=== PATIENT | female | born 1960 | race Caucasian/White ===

== ENCOUNTER → 2017-04-16 | Outpatient (CLI) | payer OTHER | LOC: FIMAGING 15:56 | PROVIDERS: ATTEND Family Medicine | DX: Z12.31 Encounter for screening mammogram for malignant neoplasm of breast (principal) | CPT/HCPCS: G0202 ==

== ENCOUNTER → 2018-04-30 | Outpatient (CLI) | payer OTHER | LOC: FIMAGING 15:58 | PROVIDERS: ATTEND Family Medicine | DX: Z12.31 Encounter for screening mammogram for malignant neoplasm of breast (principal) ==

== ENCOUNTER 2018-07-10 16:29 | Observation (INO) | payer OTHER ==
--- NOTE | 2018-07-10 16:46 | EDPHY ---
H & P Stated Complaint: L jaw pain Time Seen by Provider: 07/10/18 16:46 HPI/ROS: HPI CHIEF COMPLAINT: Left-sided jaw discomfort, flushed, palpitation HISTORY OF PRESENT ILLNESS: 58-year-old female, presents emergency room left jaw discomfort 3 episodes today. States her left jaw felt very tight, the last episode happened while she was driving home from work, she got flushed, felt her heart palpitating and had left jaw discomfort. Describes a tightness sensation. No real chest pain. No shortness of breath. But she has never had this before. No pleuritic pain. Past Medical History: Hypertension Past Surgical History: No surgical history Social History: Denies drugs alcohol tobacco. Family History: Significant for coronary artery disease, CVA in her father ROS REVIEW OF SYSTEMS: 10 Systems were reviewed and negative with the exception of the elements mentioned in the history of present illness. Exam Constitutional triage nursing summary reviewed, vital signs reviewed, awake/ alert. Eyes normal conjunctivae and sclera, EOMI, PERRLA. HENT normal inspection, atraumatic, moist mucus membranes, no epistaxis, neck supple/ no meningismus, no raccoon eyes. Respiratory clear to auscultation bilaterally, normal breath sounds, no respiratory distress, no wheezing. Cardiovascular rate normal, regular rhythm, no murmur, no edema, distal pulses normal. Gastrointestinal soft, non-tender, no rebound, no guarding, normal bowel sounds, no distension, no pulsatile mass. Genitourinary no CVA tenderness. Musculoskeletal no midline vertebral tenderness, full range of motion, no calf swelling, no tenderness of extremities, no meningismus, good pulses, neurovascularly intact. Skin pink, warm, & dry, no rash, skin atraumatic. Neurologic awake, alert and oriented x 3, AAOx3, moves all 4 extremities equally, motor intact, sensory intact, CN II-XII intact, normal cerebellar, normal vision, normal speech. Psychiatric normal mood/affect. Heme/Lymph/Immune no lymphadenopathy. Differential diagnosis includes but is not limited to: ACS, atypical chest pain , pneumothorax, pneumonia, pulmonary embolism, aortic dissection, congestive heart failure, tumor, musculoskeletal pain, esophageal pain, GERD, peptic ulcer disease, pancreatitis Medical Decision Making: The plan for this patient IV establishment IV fluid bolus, full-dose aspirin, EKG, troponin, chest x-ray, basic electrolytes, re- evaluation. Re-evaluation: EKG interpretation by me on record in [facility] system. Impression time of EKG 1712: Sinus rhythm rate of 79, LVH present. Slight ST depression V4 V5 V6. ED x-ray chest one view: Cardiomegaly present. No failure. Plan for this patient to be admitted the hospital given jaw pain, cardiomegaly on chest x-ray, hypertension, Needs further cardiac evaluation. I spoke with Dr. Pierce who agrees to admit. Source: Patient - Personal History Current Tetanus/Diphtheria Vaccine: Yes Current Tetanus Diphtheria and Acellular Pertussis (TDAP): Yes - Medical/Surgical History Hx Asthma: No Hx Chronic Respiratory Disease: No Hx Diabetes: No Hx Cardiac Disease: No Hx Renal Disease: No Hx Cirrhosis: No Hx Alcoholism: No Hx HIV/AIDS: No Hx Splenectomy or Spleen Trauma: No Other PMH: HTN, scoliosis, - Social History Smoking Status: Never smoked Constitutional: Initial Vital Signs Temperature (C) 36.9 C 07/10/18 16:34 Heart Rate 93 07/10/18 16:34 Respiratory Rate 16 07/10/18 16:34 Blood Pressure 190/100 H 07/10/18 16:34 O2 Sat (%) 97 07/10/18 16:34 O2 Delivery Mode Room Air Allergies/Adverse Reactions: No Known Allergies Allergy (Unverified 07/10/18 16:33) Home Medications: Medication Instructions Recorded Fosamax 10 MG 07/10/18 Lisinopril 07/10/18 Triamterene-Hctz 37.5-25 mg Tb 07/10/18 Medical Decision Making - Diagnostics Imaging Results: Imaging Impressions Chest X-Ray 07/10/18 16:54 Impression: Cardiomegaly without decompensation. - Data Points Laboratory Results: Laboratory Results 07/10/18 17:01 07/10/18 17:01 07/10/18 07/10/18 07/10/18 17:07 17:01 17:01 WBC RBC Hgb Hct MCV MCH MCHC RDW Plt Count MPV Neut % (Auto) Lymph % (Auto) Kern % (Auto) Eos % (Auto) Baso % (Auto) Nucleat RBC Rel Count Absolute Neuts (auto) Absolute Lymphs (auto) Absolute Monos (auto) Absolute Eos (auto) Absolute Basos (auto) Absolute Nucleated RBC Immature Gran % Immature Gran # PT 12.2 SEC SEC (12.0-15.0) INR 0.88 (0.83-1.16) APTT 32.0 SEC SEC (23.0-38.0) Sodium 137 mEq/L mEq/L (135-145) Potassium 3.3 mEq/L L mEq/L (3.5-5.2) Chloride 98 mEq/L mEq/L (97-110) Carbon Dioxide 28 mEq/l mEq/l (22-31) Anion Gap 11 mEq/L mEq/L (6-14) BUN 14 mg/dL mg/dL (7-23) Creatinine 0.7 mg/dL mg/dL (0.6-1.0) Estimated GFR > 60 Glucose 126 mg/dL H mg/dL (70-100) Calcium 10.6 mg/dL H mg/dL (8.5-10.4) Magnesium 2.0 mg/dL mg/dL (1.6-2.3) Total Bilirubin 0.5 mg/dL mg/dL (0.1-1.4) Conjugated Bilirubin 0.2 mg/dL mg/dL (0.0-0.5) Unconjugated Bilirubin 0.3 mg/dL mg/dL (0.0-1.1) AST 35 IU/L IU/L (14-46) ALT 46 IU/L IU/L (9-52) Alkaline Phosphatase 95 IU/L IU/L (38-126) POC Troponin I 0.00 ng/mL ng/mL (0.00-0.08) NT-Pro-B Natriuret Pep 31 pg/mL pg/mL (0-125) Total Protein 7.3 g/dL g/dL (6.3-8.2) Albumin 4.7 g/dL g/dL (3.5-5.0) 07/10/18 17:01 WBC 8.50 10^3/uL 10^3/uL (3.80-9.50) RBC 4.93 10^6/uL 10^6/uL (4.18-5.33) Hgb 15.6 g/dL g/dL (12.6-16.3) Hct 44.2 % % (38.0-47.0) MCV 89.7 fL fL (81.5-99.8) MCH 31.6 pg pg (27.9-34.1) MCHC 35.3 g/dL g/dL (32.4-36.7) RDW 12.4 % % (11.5-15.2) Plt Count 240 10^3/uL 10^3/uL (150-400) MPV 10.0 fL fL (8.7-11.7) Neut % (Auto) 75.3 % H % (39.3-74.2) Lymph % (Auto) 18.0 % % (15.0-45.0) Kern % (Auto) 5.4 % % (4.5-13.0) Eos % (Auto) 0.7 % % (0.6-7.6) Baso % (Auto) 0.4 % % (0.3-1.7) Nucleat RBC Rel Count 0.0 % % (0.0-0.2) Absolute Neuts (auto) 6.40 10^3/uL 10^3/uL (1.70-6.50) Absolute Lymphs (auto) 1.53 10^3/uL 10^3/uL (1.00-3.00) Absolute Monos (auto) 0.46 10^3/uL 10^3/uL (0.30-0.80) Absolute Eos (auto) 0.06 10^3/uL 10^3/uL (0.03-0.40) Absolute Basos (auto) 0.03 10^3/uL 10^3/uL (0.02-0.10) Absolute Nucleated RBC 0.00 10^3/uL 10^3/uL (0-0.01) Immature Gran % 0.2 % % (0.0-1.1) Immature Gran # 0.02 10^3/uL 10^3/uL (0.00-0.10) PT INR APTT Sodium Potassium Chloride Carbon Dioxide Anion Gap BUN Creatinine Estimated GFR Glucose Calcium Magnesium Total Bilirubin Conjugated Bilirubin Unconjugated Bilirubin AST ALT Alkaline Phosphatase POC Troponin I NT-Pro-B Natriuret Pep Total Protein Albumin Medications Given: Discontinued Medications Aspirin (Aspirin) 324 mg PO EDNOW ONE Stop: 07/10/18 16:55 Last Admin: 07/10/18 17:22 Dose: 324 mg Sodium Chloride (Ns) 1,000 mls @ 0 mls/hr IV EDNOW ONE; Wide Open PRN Reason: Protocol Stop: 07/10/18 16:55 Last Admin: 07/10/18 17:22 Dose: 1,000 mls Point of Care Test Results: Chemistry 07/10/18 17:07 POC Troponin I 0.00 ng/mL ng/mL (0.00-0.08) Departure - Departure Disposition: [facility] Inpatient Acute Clinical Impression: Hypertension, Abnormal EKG Condition: Fair
[2018-07-10] MEDS ORDERED: NS 1,000 ML IV ONE (16:54)
[2018-07-10] MEDS ORDERED: ASPIRIN 81 MG CHEWABLE TAB PO ONE (16:54)
[2018-07-10 17:17] LABS: PLATELET COUNT 240 10^3/uL (150-400)
[2018-07-10 17:45] LABS: INR 0.88 (0.83-1.16); PROTIME(PATIENT) 12.2 SEC (12.0-15.0)
[2018-07-10] MEDS ORDERED: ONDANSETRON DISINTEGRATING 4 MG TAB PO PRN (18:31)
[2018-07-10] MEDS ORDERED: ONDANSETRON 4 MG/2 ML VIAL IVP PRN (18:31)
[2018-07-10] MEDS ORDERED: HYDROCODONE/APAP 5/325 TAB PO PRN (18:31)
[2018-07-10] MEDS ORDERED: PROMETHAZINE HCL 25 MG/ML INJ IVP PRN (18:31)
[2018-07-10] MEDS ORDERED: oxyCODONE IR 5 MG TAB PO PRN (18:31)
[2018-07-10] MEDS ORDERED: NITROGLYCERIN 0.4 MG BTL SL PRN (18:32)
[2018-07-10] MEDS ORDERED: hydrALAZINE 20 MG/ML VIAL IVP PRN (18:33)
--- NOTE | 2018-07-10 20:08 | PDGENHP ---
History and Physical - Chief Complaint jaw pain - History of Present Illness 58 yo F with PMH of HTN presenting with jaw pain with associated diaphoresis, palpitations and lightheadedness. She notes these sxs began this morning. Initially she attributed it to increased stress and tensing of her jaw. It went away after a while this morning but then came back twice more and each of those occasions were notably more severe and with associated lightheadedness, sense of her heart racing, flushing and diaphoresis. She notes the sxs came on suddenly, lasted about 5 minutes and then resolved. She states the pain just went away on it's own. The last episode was at approximately 3:15pm and occurred while driving. She notes she still feels flushed but otherwise is completely back to normal. She has never had similar instances in the past. She is relatively active and notes that she does not get chest pain or sob with exertion. She is concerned that this could be a symptom of something wrong with her heart as she notes the sxs were so severe. History Information - Allergies/Home Medication List Allergies/Adverse Reactions: No Known Allergies Allergy (Unverified 07/10/18 16:33) Home Medications: Alendronate Sodium [Fosamax 70 MG (*)] 70 mg PO FR 07/10/18 [Last Taken Unknown] Lisinopril [Lisinopril] 20 mg PO DAILY 07/10/18 [Last Taken 07/10/18] Triamterene/Hctz 37.5/25 [Dyazide 37.5/25 (*)] 1 tab PO DAILY 07/10/18 [Last Taken 07/10/18] I have personally reviewed and updated: family history, medical history, social history, surgical history - Past Medical History hypertension, osteoporosis - Surgical History Reports: no pertinent surgical hx - Family History Positive for: CAD, hypertension - Social History Smoking Status: Never smoked Alcohol Use: Occasionally Drug Use: None 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, , 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 Review of Systems Review of Systems: ROS: 10pt was reviewed & negative except for what was stated in HPI & below Physical Exam Physical Exam: Temp Pulse Resp BP Pulse Ox 36.7 C 87 18 171/84 H 96 07/10/18 18:33 07/10/18 18:33 07/10/18 18:33 07/10/18 18:33 07/10/18 18:33 Constitutional: no apparent distress, appears nourished Eyes: PERRL, anicteric sclera Ears, Nose, Mouth, Throat: moist mucous membranes, hearing normal Cardiovascular: regular rate and rhythym, systolic murmur, No edema Respiratory: no respiratory distress, no rales or rhonchi Gastrointestinal: normoactive bowel sounds, soft, non-tender abdomen Genitourinary: no bladder tenderness Skin: warm, normal color Musculoskeletal: no muscle tenderness Neurologic: AAOx3 Psychiatric: interacting appropriately, not anxious Lab Data & Imaging Review 07/10/18 17:01 07/10/18 17:01 WBC 8.50 10^3/uL (3.80-9.50) 07/10/18 17:01 RBC 4.93 10^6/uL (4.18-5.33) 07/10/18 17:01 Hgb 15.6 g/dL (12.6-16.3) 07/10/18 17:01 Hct 44.2 % (38.0-47.0) 07/10/18 17:01 MCV 89.7 fL (81.5-99.8) 07/10/18 17:01 MCH 31.6 pg (27.9-34.1) 07/10/18 17:01 MCHC 35.3 g/dL (32.4-36.7) 07/10/18 17:01 RDW 12.4 % (11.5-15.2) 07/10/18 17:01 Plt Count 240 10^3/uL (150-400) 07/10/18 17:01 MPV 10.0 fL (8.7-11.7) 07/10/18 17:01 Neut % (Auto) 75.3 % (39.3-74.2) H 07/10/18 17:01 Lymph % (Auto) 18.0 % (15.0-45.0) 07/10/18 17:01 Esmeralda % (Auto) 5.4 % (4.5-13.0) 07/10/18 17:01 Eos % (Auto) 0.7 % (0.6-7.6) 07/10/18 17:01 Baso % (Auto) 0.4 % (0.3-1.7) 07/10/18 17:01 Nucleat RBC Rel Count 0.0 % (0.0-0.2) 07/10/18 17:01 Absolute Neuts (auto) 6.40 10^3/uL (1.70-6.50) 07/10/18 17:01 Absolute Lymphs (auto) 1.53 10^3/uL (1.00-3.00) 07/10/18 17:01 Absolute Monos (auto) 0.46 10^3/uL (0.30-0.80) 07/10/18 17:01 Absolute Eos (auto) 0.06 10^3/uL (0.03-0.40) 07/10/18 17:01 Absolute Basos (auto) 0.03 10^3/uL (0.02-0.10) 07/10/18 17:01 Absolute Nucleated RBC 0.00 10^3/uL (0-0.01) 07/10/18 17:01 Immature Gran % 0.2 % (0.0-1.1) 07/10/18 17:01 Immature Gran # 0.02 10^3/uL (0.00-0.10) 07/10/18 17:01 PT 12.2 SEC (12.0-15.0) 07/10/18 17:01 INR 0.88 (0.83-1.16) 07/10/18 17:01 APTT 32.0 SEC (23.0-38.0) 07/10/18 17:01 Sodium 137 mEq/L (135-145) 07/10/18 17:01 Potassium 3.3 mEq/L (3.5-5.2) L 07/10/18 17:01 Chloride 98 mEq/L (97-110) 07/10/18 17:01 Carbon Dioxide 28 mEq/l (22-31) 07/10/18 17:01 Anion Gap 11 mEq/L (6-14) 07/10/18 17:01 BUN 14 mg/dL (7-23) 07/10/18 17:01 Creatinine 0.7 mg/dL (0.6-1.0) 07/10/18 17:01 Estimated GFR > 60 07/10/18 17:01 Glucose 126 mg/dL (70-100) H 07/10/18 17:01 Calcium 10.6 mg/dL (8.5-10.4) H 07/10/18 17:01 Magnesium 2.0 mg/dL (1.6-2.3) 07/10/18 17:01 Total Bilirubin 0.5 mg/dL (0.1-1.4) 07/10/18 17:01 Conjugated Bilirubin 0.2 mg/dL (0.0-0.5) 07/10/18 17:01 Unconjugated Bilirubin 0.3 mg/dL (0.0-1.1) 07/10/18 17:01 AST 35 IU/L (14-46) 07/10/18 17:01 ALT 46 IU/L (9-52) 07/10/18 17:01 Alkaline Phosphatase 95 IU/L (38-126) 07/10/18 17:01 POC Troponin I 0.00 ng/mL (0.00-0.08) 07/10/18 17:07 NT-Pro-B Natriuret Pep 31 pg/mL (0-125) 07/10/18 17:01 Total Protein 7.3 g/dL (6.3-8.2) 07/10/18 17:01 Albumin 4.7 g/dL (3.5-5.0) 07/10/18 17:01 Visualized and Interpreted Chest x-ray results: Yes Chest X-Ray results: other (cardiomegaly) Visualized and Interpreted EKG results: Yes EKG Interpretation: Positive for: LVH, normal sinsus rhythm Assessment & Plan Assessment: Abnormal EKG (Acute) Hypertension (Acute) 58 yo F with PMH of htn presenting with jaw pain concerning for anginal equivalent # jaw pain: with associated diaphoresis, lightheadedness and palpitations and overall concerning for anginal equivalent. Heart score of 5, has never had work up before. Given abnormal ecg at baseline will get exercise nuc in am so long as ecg and trops remain negative overnight. # murmur/LVH: patient unaware of having ever been told she has a murmur, noted to have LVH and CM on cxr/ecg, will get an echo in am for further evaluation of valves etc # uncontrolled htn: patient states her bp is generally well controlled when she checks once per week, has been elevated since arrival, will resume home meds with addition of hydralazine prn and monitor, echo in am # hypokalemia: will replete # hyperglycemia: will check a1c/lipids for risk stratification # observation status Patient new to my care. Old records reviewed and summarized as above. Care plan reviewed with ER doctor as above, further hx obtained from patients present at bedside.
[2018-07-10] MEDS ORDERED: PROTOCOL POTASSIUM 1 DOSE MISC PRN (20:17)
[2018-07-10] MEDS ORDERED: POTASSIUM CL 10 MEQ TAB PO ONE (22:23)
[2018-07-10] MEDS: ACETAMINOPHEN 325 MG TAB PO PRN (22:34)
--- NOTE | 2018-07-10 22:35 | CPEKG ---
Test Reason : OPEN Blood Pressure : / mmHG Vent. Rate : 079 BPM Atrial Rate : 080 BPM P-R Int : 190 ms QRS Dur : 108 ms QT Int : 410 ms P-R-T Axes : 039 027 059 degrees QTc Int : 471 ms Sinus rhythm Probable left ventricular hypertrophy Confirmed by Paco Dietrich ([id number]) on 07/10/2018 10:33:56 PM Referred By: Confirmed By:Paco Dietrich
[2018-07-11] MEDS ORDERED: POTASSIUM CL 10 MEQ TAB PO ONE (07:30)
[2018-07-11] MEDS: ACETAMINOPHEN 325 MG TAB PO PRN (08:28)
[2018-07-11] MEDS ORDERED: ASPIRIN 325 MG TAB PO SCH (09:00)
[2018-07-11] MEDS ORDERED: LISINOPRIL 20 MG TAB PO SCH (09:00)
--- NOTE | 2018-07-11 11:15 | PDCARST ---
CAR Stress Test Results Type of Stress Test: Nuc TM Indication: jaw pain worrisome for anginal equivalent Description of Procedure: After informed consent was obtained, pt was exercised according to Zafar Protocol. Monitoring was performed with standard stress test rack operator electrode placement. Vital signs were monitored according to protocol throughout the procedure. STRESS EKG AND HEMODYNAMIC DATA. Exercise time: 5 min. This is equivalent to: 6.2 METS. Resting heart rate: 89 bpm. Resting blood pressure: 126/80 mmHg. Resting O2 saturation: 96 %. Peak heart rate: 154 bpm. This is 96 % of age predicted maximum heart rate response. Peak blood pressure: 172/82 mmHg. Exercise O2: 98 %. Arrhythmias : 1 PVC. Reason for termination: The test was stopped due to maximal effort. Symptoms: The patient experienced no typical symptoms of angina during stress or recovery. STRESS TEST ANALYSIS. Baseline ECG: SR. Stress ECG: sinus tach. 1 mm horizontal STD with exertion. Rhythm: 1 PVC noted during exercise. Blood pressure: Normal blood pressure response to exercise. Exercise tolerance : The patient has average exercise tolerance adjusted for age and gender. Symptoms: No exercise induced symptoms. IMPRESSIONS: Stress ECG is equivocal for ischemia. This is an equivocal study due to non-diagnostic ECG changes. Impression: DTS: 0 (intermediate risk) Conclusion: Await nuclear images.
[2018-07-11 11:27] VITALS: BP 154/86
--- NOTE | 2018-07-11 12:17 | ECHO ---
[email or web address] [address] [address] Main: [phone] Fax: Transthoracic Echocardiogram Name: SUNNY HATFIELD MR#: [id number] Study Date: 07/11/2018 Study Time: 08:04 AM Date of : 1960 Age: 58 year(s) Height: 152.4 cm (60 in.) Weight: 58.06 kg (128 lb.) BSA: 1.54 m2 Gender: Female Examination: Echo Indication: Chest pain/murmur Image Quality: Good Contrast: Requested by: Sarah Pierce BP: 144 mmHg/84 mmHg Heart Rate: Rhythm: Indication: Chest pain/murmur Procedure Staff Corporate Scheduler: Reyna Randle RDCS Reading Physician: Elliot Du MD Requesting Provider: Conclusions: Normal size left ventricle. Global hypercontractility of the left ventricle. The ejection fraction is estimated to be 70-75 %. No regional wall motion abnormality. Normal diastolic LV function. Trivial tricuspid valve regurgitation. There are no significant valvular abnormalities. Measurements: Chambers Valvular Assessment AV/MV Valvular Assessment TV/PV Normal Normal Normal Name Value Range Name Value Range Name Value Range Ao Gina (MM): 3.4 cm (2.2 cm-3.7 AV Vmax: 1.45 m/s (1 m/s-1.7 cm) m/s) IVSd (2D): 0.5 cm (0.6 cm-1.1 AV meanP mmHg ( - ) cm) MV E Vmax: 0.96 m/s ( - ) LVDd (2D): 4.2 cm (3.9 cm-5.3 MV A Vmax: 1.21 m/s ( - ) cm) MV E/A: 0.79 ( - ) LVDs (2D): 2.3 cm (2.1 cm-4 cm) LVPWd (2D): 0.6 cm ( - ) LVEF (MOD4): 73 % (>=55 %) EF Range: 70-75 % Continued Measurements: Chambers Valvular Assessment AV/MV Name Value Name Value LADs: 3.4 cm MV E' Septal: 0.09 m/s LADs Lon.3 cm Patient: SUNNY HATFIELD Study Date: 07/11/2018 Page 1 of 2 08:04 AM LA Area: 17.3 cm2 MV E/E' Septal: 10.90 LA Volume: 47 ml MV E/E' Lateral: 6.00 LA Volume Index: 30.5 ml/m2 Additional Vessels Name Value Ao Ascendin.9 cm Findings: Left Ventricle: Normal size left ventricle. No LV hypertrophy. Global hypercontractility of the left ventricle. The ejection fraction is estimated to be 70-75 %. No regional wall motion abnormality. Normal diastolic LV function. Right Ventricle: Normal size right ventricle. Left Atrium: The left atrium is mildly dilated. Right Atrium: The right atrium is normal in size. Mitral Valve: The mitral valve is normal in appearance and function. Aortic Valve: The aortic valve is normal in appearance and function. The aortic valve is tri-leaflet. Tricuspid Valve: The tricuspid valve is normal in appearance and function. Trivial tricuspid valve regurgitation. Pulmonic Valve: The pulmonic valve is normal in appearance and function. Aorta: The aorta is normal. Pericardium: No pericardial effusion. (No Signature Object) Patient: SUNNY HATFIELD Study Date: 07/11/2018 Page 2 of 2 08:04 AM [id number]
--- NOTE | 2018-07-11 13:45 | PDDCSUM ---
Discharge Summary Discharge Summary: Date of Admission: 07/10/2018 Date of Discharge: 07/11/2018 Consults: N/A Procedures: TTE, MPS Followup: PCP Hospital Course Problem List: 58 yo F with PMH of htn presenting with jaw pain concerning for anginal equivalent # jaw pain: with associated diaphoresis, lightheadedness and palpitations and overall concerning for anginal equivalent. Heart score of 5, has never had work up before. Given abnormal ecg at baseline, exercise nuc performed which were negative for ischemia # murmur/LVH: patient unaware of having ever been told she has a murmur, noted to have LVH and CM on cxr/ecg, TTE shows trivial TR, no other valvular abnormalities # uncontrolled htn: patient states her bp is generally well controlled when she checks once per week, has been elevated since arrival, will resume home meds # hypokalemia: will replete, instructed patient to have this rechecked with PCP in next 1-2 weeks Time spent on discharge was >35 minutes with >50% of time spent on patient education and counseling.
== END 2018-07-11 14:02 | disposition home or self-care (01) ==
LOC: F2W 18:20
PROVIDERS: ADMIT Internal Medicine; ATTEND Internal Medicine
DX: R68.84 Jaw pain (principal); R01.1 Cardiac murmur, unspecified; I10 Essential (primary) hypertension; E87.6 Hypokalemia
CPT/HCPCS: 71045; 78452; 93005; 93017; 93306; 99285; A9500; G0378; 84484-ER